=== PATIENT | female | born 1960 | race Two or more races ===

== ENCOUNTER 2016-11-17 09:45 | Inpatient (IN) | payer OTHER ==
--- NOTE | ~2016-11-17 | XA166 ---
[facility] A Service of [facility] RADIOLOGY TEXT RESULTS PATIENT: CHRISTIAN LANDEROS [address] [birth year] UNIT #: [id number] AGE: [address]: Chinedu Brown MD SEX: F ORDER DR: [id number] [facility] [address] [facility]. [place], [place] [address] [id number] I MR#: [id number] Acc #: [id number] NAME: CHRISTIAN LANDEROS : 1960 SEX: F STUDY DATE/TIME: 11/18/2016 8:09 UNIT: [facility] ROOM: [facility] STUDY DESCRIPTION: XA PICC Line Placement WO Port Attending Physician: Chinedu Brown M.D. Ordering Physician: Chinedu Brown M.D. Primary Care Physician: Van Brown M.D. MEDICAL IMAGING REPORT This report is preliminary unless electronic signature is present EXAM PICC line placement. INDICATIONS 56-year female who needs IV access. PRE-PROCEDURE The procedure was explained to the patient and/or patient client service representative including risks, benefits, potential complications and potential for alternative forms of treatment. Informed consent was obtained, and prior to initiating the procedure a formal timeout procedure was performed. PROCEDURE Using full standard sterile barrier technique, including caps, gowns, gloves, masks, as well as sterile skin preparation and standard sterile draping, the right arm was prepped and draped in the usual fashion, and real-time sterile ultrasound guidance was used to localize an arm vein and to confirm vessel patency. A hard copy ultrasound image was recorded. After local anesthesia with 1% Xylocaine, the vein was punctured using real-time sterile ultrasound guidance, and an 0.018 guidewire was advanced into the superior vena cava, using fluoroscopic guidance. A 5-Arabic double lumen PICC was then measured to 40 cm and deployed with the tip positioned in the superior vena cava. The position of the line was documented with a radiographic image. The line was secured in place with an adhesive dressing and an antibiotic patch was applied. Total fluoro time was 0.1 minutes and the reference air kerma is 7 mGy. IMPRESSION Successful placement of a 5-Arabic dual lumen PowerPICC via the right arm under ultrasound and fluoroscopic guidance. The tip of the PICC is in good position in the superior vena cava. [facility] A Service of [facility] RADIOLOGY TEXT RESULTS PATIENT: CHRISTIAN LANDEROS LOCATION: [address] : [birth year] UNIT #: [id number] AGE: [address]: Chinedu Brown MD SEX: F ORDER DR: Dictated by... Fernie Davila M.D. THIS IS AN ELECTRONICALLY VERIFIED REPORT Fernie Davila M.D. at 11/19/2016 11:32 AM Sneha TD: 11/19/2016 07:12 JOB #: [id number] MEDICAL IMAGING REPORT Page 1 of 1 COPY
--- NOTE | ~2016-11-17 | HP ---
Unit #: [id number] #: [id number] Patient: CHRISTIAN LANDEROS [id number] [address] [place], [place] [address] [id number] I MR#: [id number] NAME: CHRISTIAN LANDEROS ROOM: [facility] Age: 56 Sex: F Admission Date: 11/17/2016 : 1960 Attending Physician: Chinedu Brown M.D. Primary Care Physician: Van Brown M.D. HISTORY AND PHYSICAL HISTORY OF PRESENT ILLNESS This is a 56-year-old [place] female new to our group with a past medical history of hypertension, type 2 diabetes mellitus, and obesity. The patient does not follow with a director money. There are no previous records of stress test or cardiac catheterization. She is known to have hypertension and high cholesterol. She is also on several oral agents, as well as subcutaneous Lantus for diabetes. She presented to the emergency department at 9:30 this morning with complaints of shortness of breath and weakness for the past three days. Earlier today she fell. Preceding symptoms included lightheadedness. There was reported loss of consciousness during the fall. In addition to these symptoms, the patient has had some chest pain which is in the midsternal to left anterior chest, and the pain has been intermittent. There are no aggravating or alleviating factors. In the emergency department, telemetry revealed a heart rate in the 20s to 30s with evidence of a complete heart block. Blood pressure was 123/63 mmHg. Her O2 saturation was 98% on two liters nasal cannula. A right IJ introducer was placed in the emergency department. Cardiology was consulted emergently for severe bradycardia and complete heart block. A temporary transvenous pacemaker was placed at the bedside, and the patient was transferred to the intensive care unit. Labs upon admission revealed a critical potassium of 7.2. Creatinine was 2 with a BUN of 34. Glucose level was 640. TSH was mildly elevated at 6.52. Free T4 was normal at 0.84. Chest x-ray revealed no pneumothorax. CBC was unremarkable. Initial troponin was 0.06. Post EKG revealed a ventricular paced rhythm at 70 beats per minute. PAST MEDICAL HISTORY 1. Hypertension. 2. Hyperlipidemia. 3. Type 2 diabetes mellitus. 4. Obesity. PAST SURGICAL HISTORY Thyroid surgery, details unavailable. HOME MEDICATIONS Doses are being verified by the pharmacy. The list of medications includes Invokana, Januvia, Lantus, Glucophage, glipizide, Paxil, trazodone, pravastatin, and aspirin. ALLERGIES Unit #: [id number] #: [id number] Patient: CHRISTIAN LANDEROS No known drug allergies. SOCIAL HISTORY The patient is a nonsmoker. There are no reports of alcohol or illicit drug use. FAMILY HISTORY Noncontributory. REVIEW OF SYSTEMS A 10-point review of systems is negative except for details noted above in the History of Present Illness. PHYSICAL EXAMINATION VITAL SIGNS: Pulse 70, respirations 20, blood pressure 123/63, and O2 saturation 98% on two liters nasal cannula. CONSTITUTIONAL: This is [facility] 56[facility] who is currently in no acute distress after pacemaker placement. SKIN: Warm and dry. NECK: Supple. No jugular vein distention. No hepatojugular reflux. Normal carotid upstrokes. No carotid bruits auscultated. HEART: S1 and S2. Regular rate and rhythm. No murmurs, rubs, or gallops. LUNGS: Bilateral breath sounds are diminished in the bases. Respirations even and nonlabored. No rales, rhonchi, or wheezes. ABDOMEN: Obese, soft, nontender, and nondistended. Positive bowel sounds auscultated x4 quadrants. No ascites noted. EXTREMITIES: Bilateral lower extremities have no pretibial pitting edema. DP and PT pulses 2+. Capillary refill less than 3 seconds. DIAGNOSTIC STUDIES LABORATORY: White blood cell count 17.6, hemoglobin 13.1, hematocrit 42.8, and platelets 151,000. Sodium 130, potassium 4.1, previous potassium 7.2, chloride 95, CO2 of 12, BUN 34, creatinine 2, glucose 640, AST 53, ALT 37, and alkaline phosphatase 46. TSH is 6.52 and free T4 is 0.84. Troponin 0.06. IMAGING: Chest x-ray reveals low lung volumes. Right IJ stable with temporary pacemaker. CARDIOLOGY: Telemetry currently reveals a ventricular paced rhythm. EKG reveals complete heart block with nonspecific ST and T wave changes. IMPRESSION 1. Fall secondary to low blood pressure. 2. Ventricular escape rhythm secondary to third-degree complete atrioventricular block. 3. Obesity. 4. Hypertension. 5. Hyperlipidemia. 6. Diabetes mellitus type 2, uncontrolled. 7. History of thyroid surgery, details unavailable. 8. Severe hyperkalemia. 9. Renal insufficiency with unknown creatinine baseline. 10. Mild hyponatremia. 11. Elevated TSH, rule out hypothyroidism. 12. Leukocytosis, reactive versus infectious. PLAN Unit #: [id number] #: [id number] Patient: CHRISTIAN LANDEROS 1. The patient presented to the hospital with complaints of weakness, shortness of breath, and a fall. She was found to have a complete heart block, and Cardiology was consulted emergently. 2. A transvenous pacemaker was placed at the bedside. Patient was taken to the labor operator under fluoroscopy to confirm placement. 3. Postoperative chest x-ray revealed no pneumothorax. 4. Heart rate and blood pressure are currently stable, and the patient has been transferred to the intensive care unit for further observation. 5. Kayexalate, insulin, D50, and calcium gluconate have been given for severe hyperkalemia. 6. Nephrology has been consulted. If potassium level does not improve, she may need emergency hemodialysis. 7. Endocrinology has been consulted for critical glucose levels. The patient is currently on a high-dose sliding scale protocol but may need a continuous insulin drip. 8. She has been placed on normal saline at 125 mL/hour. 9. Fasting lipid profile, BMP, and CBC have been ordered. 10. The patient had complained of some intermittent chest pain prior to arrival to the hospital. Will trend cardiac enzymes and EKG. 11. The patient should be considered for an ischemic workup due to chest pain and multiple risk factors for ischemic heart disease. 1. Dictated by Sarah Card APRN for Monica Zuñiga TD: 11/18/2016 14:10 JOB #: [id number] HISTORY AND PHYSICAL Page 1 of 1 X X HISTORY AND PHYSICAL
--- NOTE | ~2016-11-17 | EKG ---
PATIENT: CHRISTIAN LANDEROS UNIT #: [id number] Ventricular Rate: 92 BPM Atrial Rate: 0 BPM QRS Duration: 48 ms Q-T Interval: 334 ms QTC Calculation(Bezet): 413 ms Calculated R [place]: 0 degrees Calculated T [place]: -143 degrees Diagnosis Line: Normal sinus rhythm with complete heart block with Diagnosis Line: ventricular escape complexes Diagnosis Line: Nonspecific ST and T wave abnormality Diagnosis Line: Abnormal ECG Diagnosis Line: When compared with ECG of 17-NOV-2016 09:35, Diagnosis Line: (unconfirmed) Diagnosis Line: No significant change was found Diagnosis Line: Confirmed by FREIDA MACIAS MD ([id number]) on 11/18/2016 Diagnosis Line: 4:48:25 AM INTERPRETING MD: GILBERTO GARCIA
--- NOTE | ~2016-11-17 | CR72 ---
[facility] A Service of [facility] RADIOLOGY TEXT RESULTS PATIENT: CHRISTIAN LANDEROS LOCATION: [address] : [birth year] UNIT #: [id number] AGE: [address]: Cyril Danielle MD SEX: F ORDER DR: [id number] [facility] [address] [facility]. [place], [place] [address] [id number] I MR#: [id number] Acc #: [id number] NAME: CHRISTIAN LANDEROS : 1960 SEX: F STUDY DATE/TIME: 11/17/2016 10:16 UNIT: [facility] ROOM: [facility] STUDY DESCRIPTION: CR Chest Single View Portable Attending Physician: Cyril Danielle M.D. Ordering Physician: Cyril Danielle M.D. Primary Care Physician: Van Brown M.D. MEDICAL IMAGING REPORT This report is preliminary unless electronic signature is present EXAM Chest portable 11/17/2016 11:02 hours. HISTORY 56-year-old with shortness of air and fever today, pacer placement today. COMPARISON None. FINDINGS Portable upright chest demonstrates a right IJ temporary pacer wire with a tip terminating over the right ventricular apex. There is no pneumothorax. Heart size is within normal limits. Lung volumes are low with perihilar and basilar vascular crowding. No definite edema, pneumonia or effusion. IMPRESSION 1. Low lung volume film with no definite acute cardiopulmonary findings. There is basilar vascular crowding. 2. There is a right IJ temporary pacer wire with lead tip over the right ventricular apex. No pneumothorax. Dictated by... Yisel Fitzgerald M.D. THIS IS AN ELECTRONICALLY VERIFIED REPORT Yisel Fitzgerald M.D. at 11/17/2016 6:54 PM SMM/gz TD: 11/17/2016 14:44 JOB #: [id number] MEDICAL IMAGING REPORT [facility] A Service of [facility] RADIOLOGY TEXT RESULTS PATIENT: CHRISTIAN LANDEROS LOCATION: [facility] CICCU3-19 : [birth year] UNIT #: [id number] AGE: [address]: Cyril Danielle MD SEX: F ORDER DR: Page 1 of 1 COPY
--- NOTE | ~2016-11-17 | EKG ---
PATIENT: CHRISTIAN LANDEROS UNIT #: [id number] Ventricular Rate: 105 BPM Atrial Rate: 79 BPM QRS Duration: 50 ms Q-T Interval: 330 ms QTC Calculation(Bezet): 436 ms Calculated R [place]: 0 degrees Calculated T [place]: -113 degrees Diagnosis Line: Normal sinus rhythm with complete heart block Diagnosis Line: with ventricular escape complexes Diagnosis Line: Indeterminate axis Diagnosis Line: Abnormal ECG Diagnosis Line: No previous ECGs available Diagnosis Line: Confirmed by FREIDA MACIAS MD ([id number]) on 11/18/2016 Diagnosis Line: 4:47:01 AM INTERPRETING MD: GILBERTO GARCIA
--- NOTE | ~2016-11-17 | EKG ---
PATIENT: CHRISTIAN LANDEROS UNIT #: [id number] Ventricular Rate: 70 BPM Atrial Rate: 96 BPM QRS Duration: 164 ms Q-T Interval: 486 ms QTC Calculation(Bezet): 524 ms P [place]: 51 degrees Calculated R [place]: -79 degrees Calculated T [place]: 85 degrees Diagnosis Line: Electronic ventricular pacemaker Diagnosis Line: When compared with ECG of 17-NOV-2016 12:23, Diagnosis Line: No significant change was found Diagnosis Line: Confirmed by FREIDA MACIAS MD ([id number]) on 11/21/2016 Diagnosis Line: 7:32:26 AM INTERPRETING MD: GILBERTO GARCIA
--- NOTE | ~2016-11-17 | CO ---
Unit #: [id number] #: [id number] Patient: CHRISTIAN LANDEROS [id number] [place] [id number] [facility]. [place], [place] [address] [id number] I MR#: [id number] NAME: CHRISTIAN LANDEROS ROOM: [facility] Age: 56 Sex: F Admission Date: 11/17/2016 : 1960 Attending Physician: Chinedu Brown M.D. Primary Care Physician: Van Brown M.D. Consultation Date: 11/17/2016 CONSULTATION REPORT REASON FOR CONSULTATION Diabetic ketoacidosis. HISTORY OF PRESENT ILLNESS This is a 56-year-old female, who is originally from the [facility]. She has a family in the room, who speaks German. History was obtained from the family, the patient has not been feeling well over the last 3 to 4 days has been feeling very weak, has increased thirst, and increased frequency of urination. As per family, she has been taking her oral hypoglycemic agents as well as her insulin. She fell down this morning. She was brought into the emergency room, she was found to be in a very bradycardic, hypotensive. On her further evaluation, she was also found to be in acute kidney injury with diabetic ketoacidosis with blood sugars above 600 and CO2 of 12, and her potassium was 7.2. She is being seen by the Renal. Her hyperkalemia was treated. She received the transvenous pacemaker. I have been asked to see the patient for her DKA management. REVIEW OF SYSTEMS A 12-point review of system is completed. The patient is remarkable for weakness and fatigue, polyuria, polydipsia. No loss of consciousness. No nausea, vomiting, or abdominal pain. Ten-point review of systems is unremarkable. MEDICATIONS From home include Invokana, Januvia, Glucophage, Lantus 25 units at bedtime, Paxil, and trazodone. ALLERGIES None. SOCIAL HISTORY Lives at home. No alcohol or tobacco use. PHYSICAL EXAMINATION GENERAL: She is morbidly obese. VITAL SIGNS: Weight is 234 pounds. HEENT: EOMI. Pupils equally reactive to light. NECK: Supple. No thyromegaly noted. CHEST: Good air entry. CVS: Regular rhythm. No murmurs. ABDOMEN: Soft, nontender, bowel sounds positive. EXTREMITIES: No edema noted. Unit #: [id number] #: [id number] Patient: CHRISTIAN LANDEROS DIAGNOSTIC STUDIES LABORATORY RESULTS: Her glucose is 640, her potassium recent one is 4.1, sodium 130, creatinine is 2.0, CO2 is 12. TSH is 6.5. BNP is 1390. ASSESSMENT 1. Diabetic ketoacidosis. 2. Acute kidney injury. 3. Hyperkalemia, improved. 4. Symptomatic bradycardia, history of pacemaker placement. 5. Subclinical hypothyroidism. PLAN We will discontinue all her home oral hypoglycemic agents and insulin and start the insulin drip. Monitor electrolytes and BMP serially. Accu-Cheks every hourly. Continue IV hydration. Monitor renal function closely. Start levothyroxine 50 mcg p.o. daily. We will continue to follow the patient for further management. Dictated by... Monica Silverio/james TD: 11/18/2016 01:39 JOB #: [id number] CONSULTATION REPORT Page 1 of 1 X Molly Jolly MD X CONSULTATION REPORT
--- NOTE | ~2016-11-17 | A ---
[facility] Nutrition Therapy DATE: 11/19/16 Patient: CHRISTIAN LANDEROS Physician: JOHANNA Address: [address] [place] [address] Room/Bed: [address], Zip: [place] [id number] Admit Date: 11/17/16 Date of : [birth year] Height: Weight: 235 107 NUTRITIONAL ASSESSMENT: REASON: DKA/ ICU nutrition assessment 56 yo female admitted for SOB and weakness, fall, 3rd degree heart block and hypotension PMH: HTN, HLD, obesity, DM Anthropometrics: Ht: 60" (per RD observation) Wt: 106.5 kg BMI: 45.9 Labs: Creat 0.5 Ca++ 8.2 Alb 3.4 AST 139 ALT 87 Accuchecks 128-218 HgbA1C 10.1 Trig 227 Meds: Levemir, novolog, mag-ox, MgSO4, KCl, lipitor, zofran, NaCl, synthroid I/O & Bowel function: 2465/3851, last BM 11/19 Skin Integrity: No breakdown noted Edema: None noted Diet: 45 gram Consistent carbohydrate diet Assessment: Chart reviewed, events noted. Pt admitted for fall due to hypotension and 3rd degree heart block. Pt also found to be in DKA. RN reports that the pt may be transfered to for pacemaker placement. Nutritionally, the pt is ordered a consistent carbohydrate diet now that insulin drip has been discontinued. Pt speaks minimal guatemalan, with her primary language being [place]ian. RN reports that the pt is eating well, and consumed 100% of breakfast this AM. RD spoke with the pt at bedside via a [id number]-or-bydx medical interpreter. Pt reports having a good appetite, and does not count carbs or follow a specific diet at home. RD provided basic consistent carbohydrate diet education. Pt admits to consuming an increased amount of carbohydrates and inconsistent meals. The medical interpreter explains that people from [place] consume a high amount of carbohydrate-rich foods. RD encouraged increased protein and vegetable intake, and the pt agreed that she would try. Pt denied having any questions regarding her diet. Dx: Impaired glycemic control RT possibly poor dietary habits and/or lack of nutrition-related knowledge AEB HgbA1C 10.1, accuchecks 128-218. Intervention: 1. Consistent carbohydrate diet education 2. Heart healthy/ consistent carbohydrate diet [facility] Nutrition Therapy DATE: 11/19/16 Patient: CHRISTIAN LANDEROS Physician: JOHANNA Address: [address] [place] [address] Room/Bed: [address], Zip: [place] [address] Admit Date: 11/17/16 Date of : [birth year] Height: Weight: 235 107 Monitoring, Evaluation and Goals: 1. Oral intake; tolerate >50-75% of meals 2. Labs; WNL: glucose, HgbA1C, AST, ALT, triglycerides 3. Weight; promote gradual weight loss towards healthy BMI range Recommendations: 1. Continue consistent carbohydrate diet, and add heart healthy diet restriction if the pt remains at [facility]. 2. Pt would benefit from seeing an outpatient RD for follow up diet education and accountability. Pt is at mild nutritional risk. RD will follow up per protocol. Respectfully, DEMARIO MEHTA RD, LD Food and Nutritional Services [facility] cc: client file
--- NOTE | ~2016-11-17 | CO ---
Unit #: [id number] #: [id number] Patient: CHRISTIAN LANDEROS [id number] [address] [place], [place] [address] [id number] I MR#: [id number] NAME: CHRISTIAN LANDEROS ROOM: [facility] Age: 56 Sex: F Admission Date: 11/17/2016 : 1960 Attending Physician: Cyril Danielle M.D. Primary Care Physician: Van Brown M.D. Consultation Date: 11/17/2016 CONSULTATION REPORT REASON FOR CONSULTATION Hyperkalemia. HISTORY OF PRESENT ILLNESS Ms. Landeros is a 56-year-old [place] female, who presented to the emergency room due to shortness of breath that has been going on for several days. She had also had some weakness and falls as well. The patient was found to be in heart block when she came in with severe bradycardia and Cardiology has seen the patient and placed a temporary pacemaker. In addition, her potassium level was found to be 7.2, and she was treated acutely with insulin, Kayexalate, calcium with improvement on recheck potassium down to 4.1. The patient's blood sugar on admission was 600. The patient is lying in bed, and is asymptomatic at this time. Translation was aided by her [id number], who was present. Her shortness of breath has improved. The patient tells me that she has been a diabetic since 2002. [facility] and I do not see any blood pressure medicines and particularly no ESTELLA inhibitors or Aldactone that would precipitate hyperkalemia. No swelling or urinary complaints. PAST MEDICAL HISTORY Significant for diabetes since 2002, depression, and hyperlipidemia. PAST SURGICAL HISTORY None reported. HOME MEDICATIONS Per [facility] are as follows; Januvia 100 mg a day, Invokana 300 mg a day, Lantus insulin as directed, Paxil 40 mg a day, Pravachol 40 mg a day, metformin 1000 mg b.i.d., glipizide 10 mg t.i.d., trazodone 100 mg at bedtime, and baby aspirin daily. ALLERGIES No allergies recorded on the ER intake sheet. FAMILY HISTORY No reports of any kidney disease per the family history. SOCIAL HISTORY No history of tobacco, alcohol, or drug abuse per the ER intake sheet. REVIEW OF SYSTEMS A complete 12-point review of systems was completed with the above findings. In addition, through the [id number], she has not had any Unit #: [id number] #: [id number] Patient: CHRISTIAN LANDEROS fevers or chills. No nosebleed, sore throat, or earache. No chest pain. No cough or hemoptysis. No vomiting or diarrhea reported. No bright red blood per rectum or melena. No dysuria. No swelling. No rashes. No itching. No flank pain. No night sweats or hot flashes. No intolerance to heat or cold. No bleeding issues. Unless otherwise indicated, the review of systems was negative. PHYSICAL EXAMINATION VITAL SIGNS: Temperature 98.9, pulse is 71, respiratory rate 19, blood pressure 112/59. GENERAL: This is [facility] 56[facility] who is alert, lying on her side, in no acute distress. HEENT: Head is atraumatic and normocephalic. Eyes show pink conjunctivae with no scleral icterus. No nasal drainage or nosebleed. Oropharynx is dry. She does have a narrow posterior pharyngeal airway. NECK: Thick with no JVD. HEART: Paced and regular now with no gallop or rub appreciated. LUNGS: Show diminished breath sounds with no wheezing. Breathing is nonlabored. ABDOMEN: Obese, soft, nontender. Bowel sounds are present. EXTREMITIES: No lower extremity cyanosis or pitting edema. SKIN: Dry without rashes. MUSCULOSKELETAL: No CVA tenderness to palpation. NEUROLOGIC: Cranial nerves are grossly intact with no gross motor deficits. LYMPHATIC: There is no neck or cervical lymphadenopathy. DIAGNOSTIC STUDIES LABORATORY RESULTS: Troponin initially was negative. Lactic acid level 1.4. CBC showed an elevated white count of 17, no peripheral eosinophilia. Admission chemistry; sodium 130, potassium 7.2, chloride 95, bicarb 12 for an anion gap of 23, glucose was 640, BUN and creatinine were 34 and 2 respectively. AST was high at 53. TSH high at 6.5. BNP was 1300. Glucose was 531, on recheck. Recheck potassium was down to 4.1. CK 110. IMAGING STUDIES: Chest x-ray showed low lung volumes with no definite acute findings, basilar vascular crowding present. No definite edema or effusion. ASSESSMENT/PLAN 1. Hyperkalemia. This appears to be due to diabetic ketoacidosis and elevated blood sugars. The patient was treated acutely with improvement and I will be starting diabetic ketoacidosis protocol. Insulin drip will further correct. 2. Acute kidney injury. This looks to be due to prerenal azotemia from dehydration from elevated sugars. Do not know her baseline, however. We will continue fluids and recheck in the morning. 3. Diabetic ketoacidosis. We will be starting a protocol with insulin drip and I did okay this with Dr. Jolly, who is now here. 4. Hypotension, on fluids with improvement. Pacemaker has also helped. 5. Heart block, status post pacer. 6. With acidosis certainly her metformin will have to be discontinued. I would like to thank Dr. Brown for this consult and the opportunity to participate in evaluation and care of Ms. Landeros. Unit #: [id number] #: [id number] Patient: CHRISTIAN LANDEROS Dictated by... Roldan Oreilly Jr., MYoandy. RADHA/jeremiahl TD: 11/17/2016 23:29 JOB #: [id number] CONSULTATION REPORT Page 1 of 1 X Roldan Oreilly MD X CONSULTATION REPORT
--- NOTE | ~2016-11-17 | EKG ---
PATIENT: CHRISTIAN LANDEROS UNIT #: [id number] Ventricular Rate: 71 BPM Atrial Rate: 77 BPM QRS Duration: 164 ms Q-T Interval: 510 ms QTC Calculation(Bezet): 554 ms Calculated R [place]: -83 degrees Calculated T [place]: 80 degrees Diagnosis Line: Electronic ventricular pacemaker Diagnosis Line: When compared with ECG of 17-NOV-2016 09:36, Diagnosis Line: (unconfirmed) Diagnosis Line: Electronic ventricular pacemaker has replaced Diagnosis Line: ventriular escape rhythm Diagnosis Line: Confirmed by FERIDA MACIAS MD ([id number]) on 11/18/2016 Diagnosis Line: 4:53:15 AM INTERPRETING MD: GILBERTO GARCIA
--- NOTE | ~2016-11-17 | DS ---
Unit #: [id number] #: [id number] Patient: CHRISTIAN LANDEROS [id number] [address] [place], [place] [address] [id number] I MR#: [id number] NAME: CHRISTIAN LANDEROS ROOM: [facility] Age: 56 Sex: F Admission Date: 11/17/2016 : 1960 Discharge Date: 11/19/2016 Attending Physician: Chinedu Brown M.D. Primary Care Physician: Van Brown M.D. DISCHARGE SUMMARY TRANSFER DIAGNOSES 1. Symptomatic bradycardia, status post fall. 2. Ventricular escape rhythm secondary to third degree complete heart block. 3. Severe hyperkalemia secondary to hyperglycemia, resolved. 4. Diabetic acidosis. 5. Acute kidney injury, resolved. 6. Hypotension, resolved. 7. Sick sinus syndrome with AV mouna block. 8. Hypothyroidism. 9. Hypomagnesemia. 10. History of hypertension. 11. Leukocytosis. TRANSFER MEDICATIONS 1. Acetaminophen 650 mg q.6 hours p.r.n. 2. Magnesium oxide 400 mg b.i.d. 3. Paxil 40 mg daily. 4. Trazodone 100 mg q. h.s. 5. Zofran 4 mg IV q.4 hours p.r.n. nausea and vomiting. 6. Lipitor 10 mg q. h.s. 7. Levemir 40 units subcu q. h.s. 8. NovoLog insulin per sliding scale a.c. and h.s., medium dose. 9. NovoLog 8 units subcu t.i.d. with meals. 10. Aspirin 81 mg daily. 11. Sodium chloride 1 mL IV q. shift p.r.n. 12. Levothyroxine 0.05 mg daily. HOSPITAL COURSE This is a 56-year-old [place] female who presented to the emergency room with a complaint of weakness and shortness of breath. He had reported lightheadedness and fell. There was loss of consciousness after the fall. She has some mild chest discomfort but she was ruled out for an acute myocardial infarction where her troponin peaked at 0.06. In the emergency room, telemetry showed heart rate in the 20s and 30s. Electrocardiogram showed third degree AV block. Transvenous temporary pacemaker was placed. The patient had brief asystole just before completion of insertion of the temporary pacemaker. There was successful capture. She was transferred to the Intensive Care Unit for further monitoring. She was noted to have a critical potassium level of 7.2 that was treated with calcium gluconate, D50 insulin and Kayexalate. For this reason, nephrology was consulted. Repeat potassium level was 4.1. She did become hypokalemic that required potassium supplement. Magnesium Unit #: [id number] #: [id number] Patient: CHRISTIAN LANDREOS level was also low at 1.4 which is also supplemented. Urinalysis showed no indication of urinary tract infection. She had leukocytosis but blood cultures showed no growth after 24 hours. Creatinine also was elevated at 2.0. The patient also had hyperglycemia and a history of known diabetes. Glucose level was 640. Dr. Jolly was asked to see the patient and she was started on insulin drip per DKA protocol. TSH was elevated at 6.52 and she was started on levothyroxine. There was no evidence of an acute myocardial infarction. The patient had no complaints of chest pain. Infection was ruled out. She remained afebrile. Since there was no improvement of her heart rate where she remained in third degree AV block, she will require a permanent pacemaker. Will be transferred to [facility]. After discussion, the patient agreed. ASSESSMENT VITAL SIGNS: Blood pressure 141/60, heart rate 53, temperature 98.1. CHEST: Clear to auscultation. HEART: S1, S2. Regular rate and rhythm. ABDOMEN: Soft with bowel sounds present. EXTREMITIES: Without leg edema. DIAGNOSTIC STUDIES LABORATORY: Glucose 81, BUN 11, creatinine 0.5, sodium 144, potassium 3.9, magnesium 1.8, cholesterol 183, triglycerides 227, LDL 108, HDL 30, TSH 6.52. White count 14.9, hemoglobin 11.9, hematocrit 36.6, platelet count 204. CARDIOVASCULAR: Electrocardiogram shows ventricularly paced rhythm. CONSULTATIONS 1. Dr. Jolly - Endocrinology. 2. Dr. Oreilly - Nephrology. PLAN 1. The patient will be transferred to [facility] for insertion of permanent pacemaker for high-grade AV block with third degree block. 2. Temporary pacemaker will remain at a rate of 70, MA of 5 until permanent pacemaker has been done. 3. The patient will be seen by Dr. Noriega and Dr. Ocampo. 4. Medications as per medication reconciliation. Dictated by... Mercedes CooleyPVazquezRSvitlana for Monica Zuñiga/nadeem TD: 11/20/2016 07:41 JOB #: [id number] Unit #: [id number] #: [id number] Patient: LETICHRISTIAN DISCHARGE SUMMARY Page 1 of 1 X Ian Chawla APRN X DISCHARGE SUMMARY
[2016-11-17 10:36] LABS: POC - CKMB 1.3 ng/mL (0.0-7.9); POC - TROPONIN <0.05 ng/mL (<=0.05)
[2016-11-17 11:00] LABS: BASOPHIL# 0.1 X10e3 (0-0.3); BASOPHIL% 0.4 % (0-2.5); EOSINOPHIL% 0.2 % (0.0-7.0); HEMATOCRIT 42.8 % (35.0-45.0); HEMOGLOBIN 13.1 gm/dL (12.0-16.0); LYMPHOCYTE# 2.7 X10e3 (1.0-3.5); LYMPHOCYTE% 15.3 % (17.0-45.0); MEAN CELL VOLUME 96.6 FL (83-96); MEAN CORPUSCULAR HEMOGLOBIN 29.5 PG (28-34); MEAN CORPUSCULAR HGB CONC 30.5 g/dL (30-36); MEAN PLATELET VOLUME 10.5 FL (6.5-11.5); MONOCYTE% 5.4 % (3.0-12.0); NEUTROPHIL# 13.9 X10e3 (1.5-7.1); NEUTROPHIL% 78.7 % (40-75); PLATELET COUNT 151 X10e3 (140-420); RED BLOOD COUNT 4.44 X10e (3.90-5.30); RED CELL DISTRIBUTION WIDTH 15.6 % (11.0-15.5); WHITE BLOOD COUNT 17.6 X10e3 (4.0-10.5)
[2016-11-17 11:01] LABS: INR 1.2; PROTHROMBIN TIME (PATIENT) 12.7 SECONDS (9.6-11.5)
[2016-11-17 11:02] LABS: PARTIAL THROMBOPLASTIN TIME <20.0 SECONDS (23.5-31.3)
[2016-11-17 11:19] LABS: ALBUMIN SERUM 3.8 g/dL (3.5-5.0); BILIRUBIN, DIRECT 0.2 mg/dL (0.0-0.2); BILIRUBIN,INDIRECT 0.8 mg/dL (0.0-0.9); CALCIUM SERUM 8.4 mg/dL (8.4-10.2); DIFF IND YES; GLOM FILT RATE Estimated 27.4 mL/min (>60)
[2016-11-17 11:22] LABS: ANISOCYTOSIS SL; PLATELET ESTIMATE NORMAL (NORMAL); RBC NORMAL YES
[2016-11-17 11:23] LABS: THYROID STIMULATING HORMONE 6.52 uIU/ml (0.34-5.60)
[2016-11-17 11:26] LABS: POTASSIUM 7.2 mmol/L (3.5-5.1)
[2016-11-17 11:29] LABS: FREE THYROXIN (T4) 0.84 ng/dL (0.58-1.64)
[2016-11-17 17:00] LABS: %MB 2.8 % (0.0-4.0); MB 3.1 ng/ml
[2016-11-17] MEDS ORDERED: INVOKANA300 MG PO (17:22)
[2016-11-17] MEDS ORDERED: JANUVIA100 MG PO (17:23)
[2016-11-17] MEDS ORDERED: PAXIL PO (17:24)
[2016-11-17] MEDS ORDERED: LANTUS100 U/ML SUBQ (17:24)
[2016-11-17] MEDS ORDERED: PRAVACHOL PO (17:25)
[2016-11-17] MEDS ORDERED: METFORMIN PO (17:25)
[2016-11-17] MEDS ORDERED: GLIPIZIDE2.5 MG/BO1 PO (17:26)
[2016-11-17] MEDS ORDERED: ASPIRIN1 GM PO (17:27)
[2016-11-17] MEDS ORDERED: TRAZODONE HCL5 GM PO (17:27)
[2016-11-17 21:22] LABS: URINE SOURCE CLEAN CATCH
[2016-11-17 21:27] LABS: URINE APPEARANCE CLEAR; URINE BILIRUBIN NEG (NEG); URINE BLOOD NEG (NEG); URINE COLOR YELLOW; URINE GLUCOSE NEG (NEG); URINE KETONE NEG (NEG); URINE LEUKOCYTE ESTERASE NEG (NEG); URINE NITRATE NEG (NEG); URINE PROTEIN NEG (NEG); URINE SPECIFIC GRAVITY 1.006 (1.003-1.035); URINE UROBILINOGEN 0.2 MG/DL (NEG)
[2016-11-17 21:37] LABS: CULTURE INDICATED? NO
[2016-11-18 05:34] LABS: BASOPHIL# 0.1 X10e3 (0-0.3); BASOPHIL% 0.7 % (0-2.5); EOSINOPHIL# 0.1 X10e3 (0-0.7); EOSINOPHIL% 0.8 % (0.0-7.0); HEMATOCRIT 36.6 % (35.0-45.0); HEMOGLOBIN 11.9 gm/dL (12.0-16.0); LYMPHOCYTE# 3.7 X10e3 (1.0-3.5); LYMPHOCYTE% 24.7 % (17.0-45.0); MEAN CORPUSCULAR HEMOGLOBIN 29.7 PG (28-34); MEAN CORPUSCULAR HGB CONC 32.4 g/dL (30-36); MONOCYTE# 0.8 X10e3 (0-1.0); MONOCYTE% 5.1 % (3.0-12.0); NEUTROPHIL# 10.3 X10e3 (1.5-7.1); NEUTROPHIL% 68.7 % (40-75); PLATELET COUNT 204 X10e3 (140-420); RED CELL DISTRIBUTION WIDTH 14.5 % (11.0-15.5); WHITE BLOOD COUNT 14.9 X10e3 (4.0-10.5)
[2016-11-18 05:55] LABS: DIFF IND NO; MEAN CELL VOLUME 91.5 FL (83-96)
[2016-11-18 06:02] LABS: ALBUMIN SERUM 3.4 g/dL (3.5-5.0); ALKALINE PHOSPHATASE 37 U/L (32-92); ALT (SGPT) 87 U/L (10-40); AST (SGOT) 139 U/L (10-42); BILIRUBIN,TOTAL 0.6 mg/dL (0.2-2.0); BLOOD UREA NITROGEN 19 mg/dL (9-23); BUN/CREATININE RATIO 27.14; CALCIUM SERUM 8.3 mg/dL (8.4-10.2); CARBON DIOXIDE 29 mmol/L (22-31); CHLORIDE 105 mmol/L (100-111); CHOLESTEROL 183 mg/dL (0-200); CPK (CREATINE PHOSPHOKINASE) 111 IU/L (26-140); CREATININE SERUM 0.7 mg/dL (0.6-1.4); GLOM FILT RATE Estimated ABOVE60 mL/min (>60); GLUCOSE FASTING 108 mg/dL (70-110); HDL CHOLESTEROL 30 mg/dL (35-95); LDL CHOLESTEROL 108 mg/dL (-130); LDL/HDL RATIO 4 RATIO (0-4); MAGNESIUM 1.4 mg/dL (1.6-3.0); POTASSIUM 3.3 mmol/L (3.5-5.1); PROTEIN TOTAL SERUM 6.1 g/dL (6.0-8.3); TRIGLYCERIDES 227 mg/dL (10-160)
[2016-11-18 06:03] LABS: SODIUM 140 mmol/L (135-145)
[2016-11-18 12:08] LABS: BLOOD UREA NITROGEN 15 mg/dL (9-23); CALCIUM SERUM 8.5 mg/dL (8.4-10.2); CARBON DIOXIDE 29 mmol/L (22-31); CHLORIDE 102 mmol/L (100-111); CREATININE SERUM 0.6 mg/dL (0.6-1.4); GLOM FILT RATE Estimated ABOVE60 mL/min (>60); GLUCOSE FASTING 127 mg/dL (70-110); PHOSPHOROUS 2.9 mg/dL (2.5-4.6); POTASSIUM 3.8 mmol/L (3.5-5.1); SODIUM 140 mmol/L (135-145)
[2016-11-19 04:16] LABS: BLOOD UREA NITROGEN 11 mg/dL (9-23); CALCIUM SERUM 8.2 mg/dL (8.4-10.2); CARBON DIOXIDE 31 mmol/L (22-31); CHLORIDE 105 mmol/L (100-111); CREATININE SERUM 0.5 mg/dL (0.6-1.4); GLOM FILT RATE Estimated ABOVE60 mL/min (>60); GLUCOSE FASTING 81 mg/dL (70-110); MAGNESIUM 1.8 mg/dL (1.6-3.0); POTASSIUM 3.4 mmol/L (3.5-5.1); SODIUM 144 mmol/L (135-145)
== END 2016-11-19 19:10 | DRG 308 ==
LOC: CED 09:45 → CICCU3 12:10
PROVIDERS: Emergency Medicine; Family Medicine; Internal Medicine Cardiovascular Disease; Internal Medicine Nephrology; Nurse Practitioner Family
PROC: 5A1223Z Performance of Cardiac Pacing, Continuous (ICD-10-PCS; principal; 2016-11-17)
PROC: 05HM33Z Insertion of Infusion Device into Right Internal Jugular Vein, Percutaneous Approach (ICD-10-PCS; 2016-11-17)
PROC: B543ZZA Ultrasonography of Right Jugular Veins, Guidance (ICD-10-PCS; 2016-11-17)
DX: I49.5 Sick sinus syndrome (principal); E13.10 Other specified diabetes mellitus with ketoacidosis without coma; I44.2 Atrioventricular block, complete; N17.9 Acute kidney failure, unspecified; I95.9 Hypotension, unspecified; Z68.42 Body mass index [BMI] 45.0-49.9, adult; E87.1 Hypo-osmolality and hyponatremia; Z79.4 Long term (current) use of insulin; E87.5 Hyperkalemia; E86.0 Dehydration; E03.9 Hypothyroidism, unspecified; E83.42 Hypomagnesemia; I10 Essential (primary) hypertension; D72.829 Elevated white blood cell count, unspecified; E66.9 Obesity, unspecified; Z91.81 History of falling; F32.9 Major depressive disorder, single episode, unspecified
CPT/HCPCS: 36415; 36556; 71010; 76937; 77001; 80048; 80053; 80061; 80076; 81003; 82550; 82553; 82947; 83036; 83605; 83735; 83880; 84100; 84132; 84439; 84443; 84484; 85025; 85610; 85730; 87040; 93005; 94760; 99291; C1751; J0610; J1815; J1940; J3475

== ENCOUNTER → 2017-03-09 | Outpatient (CLI) | payer OTHER ==
[~2017-03-09] MED LIST: ASPIRIN1 GM PO; GLIPIZIDE2.5 MG/BO1 PO; INVOKANA300 MG PO; JANUVIA100 MG PO; LANTUS100 U/ML SUBQ; METFORMIN PO; PAXIL PO; PRAVACHOL PO; TRAZODONE HCL5 GM PO
--- NOTE | ~2017-03-09 | ST ---
Unit #: [id number] #: [id number] Patient: CHRISTIAN LANDEROS [id number] [address] [address] [id number] O MR#: [id number] NAME: CHRISTIAN LANDEROS : 1960 SEX: F STUDY DATE/TIME: 03/09/2017 UNIT: [facility] ROOM: STUDY DESCRIPTION: Lexiscan stress test Attending Physician: Chinedu Brown M.D. Referring Physician: Chinedu Brown M.D. Primary Care Physician: Van Brown M.D. CARDIOLOGY REPORT PROCEDURE PERFORMED EKG portion of a Lexiscan Cardiolite stress test. DISCUSSION Baseline EKG reveals a ventricular paced rhythm. A total of 0.4 mg of Lexiscan was injected per protocol, followed by Cardiolite. There were no complaints of chest pain. There were no sustained arrhythmias noted. There were no ST or T wave changes to suggest ischemia. The patient's maximal heart rate was 111 beats per minute with a maximal blood pressure of 144/83 mmHg. The test was stopped due to protocol completion. IMPRESSION 1. Negative EKG portion of Lexiscan Cardiolite stress test. 2. There were no complaints of chest pain. 3. There were no sustained arrhythmias noted. 4. There were no ST or T wave changes to suggest ischemia. 5. Please correlate with Cardiolite images. NOTE: Of note, educational sign language interpreter was used during supervision of the stress test. Pressurization Mechanic ID #[id number]. Dictated by... Sarah Card APRN for Monica Cortes/martín TD: 03/09/2017 12:43 JOB #: [id number] CARDIOLOGY REPORT Page 1 of 1 X CARDIOLOGY REPORT
--- NOTE | ~2017-03-09 | TH ---
Unit #: [id number] #: [id number] Patient: CHRISTIAN LANDEROS [id number] [address] [address] [id number] O MR#: [id number] NAME: CHRISTIAN LANDEROS : 1960 SEX: F STUDY DATE/TIME: 03/09/2017 UNIT: [facility] ROOM: STUDY DESCRIPTION: Attending Physician: Chinedu Brown M.D. Referring Physician: Chinedu Brown M.D. Primary Care Physician: Van Brown M.D. CARDIOLOGY REPORT EXAM Lexiscan Cardiolite stress test. PROCEDURE Using technetium 99m labeled Cardiolite, rest and stress SPECT images were obtained. Multiple SPECT images were obtained in various views including horizontal and vertical long axis and short axis views of the left ventricle. Images were obtained by gated SPECT method. The patient was administered 9.32 mCi of Cardiolite at rest. The patient was administered 30.2 mCi of Cardiolite after Lexiscan infusion completed. On the stress images, there is a small area of mild decreased isotope activity in the inferoapical wall. The rest images show a larger area of severe decreased isotope activity inferoapically. Comparing rest and stress images, there is a small area of predominantly fixed defect seen inferoapically, worse on the rest images consistent with soft tissue artifact. The left ventricular ejection fraction is calculated to be 66%. There is no focal wall motion abnormality seen. CONCLUSION 1. No obvious stress induced ischemia noted. 2. There is a small area of predominantly fixed defect seen inferoapically, most likely due to soft tissue artifact. 3. The left ventricular ejection fraction is calculated to be 66%. 4. There is no focal wall motion abnormality seen. 5. Normal Lexiscan Cardiolite stress test. 6. Technically limited study due to patient's body habitus. Clinical correlation is requested. Dictated by... Monica Cortes TD: 03/09/2017 16:03 JOB #: [id number] Unit #: [id number] #: [id number] Patient: CHRISTIAN LANDEROS CARDIOLOGY REPORT Page 1 of 1 X Zaida Montoya MD <ELECTRONICALLY SIGNED> 03/21/17 1425 CARDIOLOGY REPORT
== END | disposition home or self-care (01) ==
LOC: CNUC 09:00
DX: I44.30 Unspecified atrioventricular block (principal); E11.9 Type 2 diabetes mellitus without complications; E78.5 Hyperlipidemia, unspecified; I10 Essential (primary) hypertension
CPT/HCPCS: 78452; 93017; A9500; J2785

== ENCOUNTER → 2017-04-03 | Outpatient (CLI) | payer OTHER ==
--- NOTE | ~2017-04-03 | MY29 ---
[facility] A Service of [facility] RADIOLOGY TEXT RESULTS PATIENT: CHRISTIAN LANDEROS LOCATION: [facility] : 60 UNIT #: [id number] AGE: [address]: Van Brown MD SEX: F ORDER DR: [id number] [facility] [address] [facility]. [place], [place] [address] [id number] O MR#: [id number] Acc #: [id number] NAME: CHRISTIAN LANDEROS : 1960 SEX: F STUDY DATE/TIME: 04/03/2017 10:02 UNIT: [facility] ROOM: STUDY DESCRIPTION: MY [facility] SCREENING W/ CAD BILAT Attending Physician: Van Brown M.D. Referring Physician: Van Brown M.D. Ordering Physician: Van Brown M.D. Primary Care Physician: Van Brown M.D. MEDICAL IMAGING REPORT This report is preliminary unless electronic signature is present EXAM Digital screening mammogram 04/03/2017. HISTORY A 56-year old woman no risk elevation. Annual screening. COMPARISON STUDIES 02/14/2015. FINDINGS The digital imaging of each breast was completed utilizing screening protocol. Review includes FDA-approved CAD device. FINDINGS The breast parenchyma is predominantly fatty replaced bilaterally. The subareolar dominance is again noted left breast upper outer subareolar location. This is less conspicuous. Pacemaker is partially imaged on the left MLO projection. There is no interval occurring mass and no suspicious microcalcifications. There is no architectural disturbance. IMPRESSION Negative mammogram. Annual screening recommended. Patients over the age of 40 are entered into a reminder system with target due date for the next mammogram. A result letter will also be sent to the patient. BIRADS: 1 Negative Dictated by... [facility] A Service [facility] RADIOLOGY TEXT RESULTS PATIENT: CHRISTIAN LANDEROS LOCATION: [facility] : 60 UNIT #: [id number] AGE: [address]: Van Brown MD SEX: F ORDER DR: Eddy Atkins M.D. THIS IS AN ELECTRONICALLY VERIFIED REPORT Eddy Atkins M.D. at 04/03/2017 1:56 PM RHONDA/ivette TD: 04/03/2017 12:53 JOB #: [id number] MEDICAL IMAGING REPORT Page 1 of 1 COPY
== END | disposition home or self-care (01) ==
LOC: CWCC 09:40
DX: Z12.31 Encounter for screening mammogram for malignant neoplasm of breast (principal)
CPT/HCPCS: G0202